=== PATIENT | male | born 1980 | race Asian ===

== ENCOUNTER 2017-09-09 16:54 | Emergency (ER) | payer OTHER ==
[~2017-09-09] VITALS: Ht 198.1 cm; Wt 113.4 kg
[2017-09-09 18:50] VITALS: BP 130/78; TEMP 98
== END 2017-09-09 18:50 | disposition home or self-care (01) ==
LOC: ED 16:54
PROC: 2W3CX1Z Immobilization of Right Lower Arm using Splint (ICD-10-PCS; principal; 2017-09-09)
DX: S60.221A Contusion of right hand, initial encounter (principal); W23.0XXA Caught, crushed, jammed, or pinched between moving objects, initial encounter; Y92.89 Other specified places as the place of occurrence of the external cause
CPT/HCPCS: 96372; 99283; L3908

== ENCOUNTER 2020-06-13 11:29 | Emergency (ER) | payer OTHER ==
[~2020-06-13] VITALS: Ht 195.6 cm; Wt 111.1 kg
[2020-06-13 11:36] VITALS: BP 148/103; TEMP 98.5
== END 2020-06-13 12:13 | disposition home or self-care (01) ==
LOC: ED 11:29
DX: J02.9 Acute pharyngitis, unspecified (principal); F17.210 Nicotine dependence, cigarettes, uncomplicated
CPT/HCPCS: 99282